=== PATIENT | female | born 1955 | race Caucasian/White ===

== ENCOUNTER 2024-11-24 17:14 | Inpatient (IN) | payer MEDICARE, OTHER ==
[~2024-11-24] VITALS: Ht 160 cm; Wt 75.8 kg
[2024-11-24] MEDS ORDERED: ASPIRIN EC 325 MG TABLET.DR PO ONE (17:46)
[2024-11-24] MEDS: ASPIRIN EC 325 MG TABLET.DR PO ONE (17:49)
[2024-11-24 17:59] LABS: CALCIUM, SERUM 9.8 mg/dL (8.5-10.1); CARBON DIOXIDE 27 mmol/L (21-32); CHLORIDE 103 mmol/L (98-107); CREATININE 1.1 mg/dL (0.6-1.3); GLUCOSE 114 mg/dL (74-106); SODIUM SERUM 139 mmol/L (136-145); UREA NITROGEN, BLOOD 43 mg/dL (7-18)
[2024-11-24 18:01] LABS: POTASSIUM 6.5 mmol/L (3.5-5.1)
[2024-11-24 18:14] LABS: BASOPHILS % (AUTO) 0.4 % (0.0-2.0); EOSINOPHILS # (AUTO) 0.1 K/uL (0.0-0.7); HEMATOCRIT 40 % (33-45); HEMOGLOBIN 13.6 g/dL (11.5-14.8); LYMPHOCYTES # (AUTO) 2.6 K/uL (0.8-4.8); LYMPHOCYTES % (AUTO) 40.4 % (20.0-44.0); MEAN CORPUSCULAR HEMOGLOBIN 31 PG (26.0-33.0); MEAN CORPUSCULAR HGB CONC 34 g/dl (31.0-36.0); MEAN CORPUSCULAR VOLUME 91 fL (82-100); MONOCYTES # (AUTO) 0.4 K/uL (0.1-1.30); MONOCYTES % (AUTO) 6.5 % (2.0-12.0); NEUTROPHILS # (AUTO) 3.3 K/uL (1.8-8.9); NEUTROPHILS % (AUTO) 50.7 % (43.0-81.0); PLATELET COUNT (AUTO) 206 K/uL (150-450); RED BLOOD CELL COUNT(AUTO) 4.42 MIL/uL (4.0-5.2); RED CELL DISTRIBUTION WIDTH 14.5 % (11.5-15.0); WHITE BLOOD COUNT (AUTO) 6.5 K/uL (4.3-11.0)
[2024-11-24] MEDS: Calcium Gluconate 1GM/10ML 4.65 MEQ in IV NS 0.9% 100 ML IV ONE (19:30)
[2024-11-24] MEDS: SODIUM BICARBONATE SYR 50 MEQ/50 ML DISP.SYRIN IV ONE (19:30)
[2024-11-24] MEDS: SODIUM ZIRCONIUM CYCLOSILICATE 10 GM POWD.PACK PO ONE (19:30)
[2024-11-24] MEDS ORDERED: Calcium Gluconate 0.465 MEQ/ML VIAL IV ONE (19:33)
[2024-11-24] MEDS ORDERED: SODIUM BICARBONATE SYR 50 MEQ/50 ML DISP.SYRIN ONE (19:34)
[2024-11-24] MEDS ORDERED: SODIUM ZIRCONIUM CYCLOSILICATE 10 GM POWD.PACK ONE (19:34)
[2024-11-24] MEDS ORDERED: APIX5TAB PO (20:37)
[2024-11-24] MEDS ORDERED: POLY15DR31 EACHEYE (20:37)
[2024-11-24] MEDS ORDERED: MULT-213 PO (20:37)
[2024-11-24] MEDS ORDERED: SERT50TA12 PO (20:37)
[2024-11-24] MEDS ORDERED: MAGN400O6 PO (20:37)
[2024-11-24] MEDS ORDERED: INSU100V11 SQ (20:37)
[2024-11-24] MEDS ORDERED: TRAM50TA2 PO (20:37)
[2024-11-24] MEDS ORDERED: DOCU100C36 PO (20:37)
[2024-11-24] MEDS ORDERED: DICL100G34 TP (20:37)
[2024-11-24] MEDS ORDERED: GLUC1KIT IM (20:37)
[2024-11-24] MEDS ORDERED: ATOR40TA PO (20:37)
[2024-11-24] MEDS ORDERED: AMIL5TAB9 PO (20:37)
[2024-11-24] MEDS ORDERED: ACET-73 PO (20:37)
[2024-11-24] MEDS ORDERED: SENN8.6T19 PO (20:37)
[2024-11-24] MEDS ORDERED: CRAN300T PO (20:37)
[2024-11-24] MEDS ORDERED: PANT40TA49 PO (20:37)
[2024-11-24] MEDS ORDERED: SACU1TAB PO (20:37)
[2024-11-24] MEDS ORDERED: CYCL30DR EACHEYE (20:37)
[2024-11-24] MEDS ORDERED: AMLO-213 PO (20:37)
[2024-11-24] MEDS ORDERED: LIDO30AD10 TP (20:37)
[2024-11-24] MEDS ORDERED: MAGN400T8 PO (20:37)
[2024-11-24] MEDS ORDERED: BETH50TA2 PO (20:37)
[2024-11-24] MEDS ORDERED: ASPI-869 PO (20:37)
[2024-11-24] MEDS ORDERED: ONDA-97 PO (20:37)
[2024-11-24] MEDS ORDERED: METO25TA20 PO (20:37)
[2024-11-24] MEDS ORDERED: ACET325T53 PO (20:37)
[2024-11-24] MEDS ORDERED: SUCR1ORA15 PO (20:37)
[2024-11-24] MEDS ORDERED: NITR0.4T48 SL (20:37)
[2024-11-24] MEDS ORDERED: ASCO500T10 PO (20:37)
[2024-11-24] MEDS ORDERED: BUSP10TA3 PO (20:37)
[2024-11-24] MEDS ORDERED: METF-440 PO (20:37)
[2024-11-24] MEDS ORDERED: BISA10SU11 RC (20:37)
[2024-11-24] MEDS ORDERED: Z GUARD REMEDY 4 OZ OINT TP PRN (21:00)
[2024-11-24] MEDS ORDERED: ONDANSETRON HCL/PF 4 MG/2 ML VIAL IVP PRN (21:00)
[2024-11-24] MEDS ORDERED: MAGNESIUM HYDROXIDE 30 ML UDC PO PRN ×2 (21:00→23:30)
[2024-11-24] MEDS ORDERED: ZOLPIDEM TARTRATE 5 MG TABLET PO PRN (21:00)
[2024-11-24] MEDS ORDERED: MAG HYDROX/AL HYDROX/SIMETH 30 ML UDC PO PRN (21:00)
[2024-11-24 22:00] VITALS: BP 138/58; TEMP 97.7; O2SAT 98
[2024-11-24] MEDS: ENOXAPARIN SODIUM 40 MG/0.4 ML DISP.SYRIN SQ SCH (23:05)
[2024-11-24] MEDS: IV 1/2NS 1000 ML 1,000 ML IV PRN (23:20)
[2024-11-24] MEDS ORDERED: DOCUSATE SODIUM 100 MG CAPSULE PO PRN (23:30)
[2024-11-24] MEDS ORDERED: NITROGLYCERIN 0.4 MG/TAB BOTTLE SL PRN (23:30)
[2024-11-24] MEDS ORDERED: DEXTROSE 50%-WATER 50 ML DISP.SYRIN IV PRN (23:30)
[2024-11-24] MEDS ORDERED: ACETAMINOPHEN ES 500 MG TABLET PO PRN (23:30)
[2024-11-24] MEDS ORDERED: ACETAMINOPHEN 325 MG TABLET PO PRN (23:30)
[2024-11-24] MEDS ORDERED: BISACODYL SUPP (10 MG) 10 MG/SUPP.RECT SUPP.RECT RC PRN (23:30)
[2024-11-24] MEDS ORDERED: ONDANSETRON 4 MG TAB.RAPDIS PO PRN (23:45)
[2024-11-24] MEDS ORDERED: GLUCAGON,HUMAN RECOMBINANT 1 MG/VIAL VIAL IM PRN (23:45)
[2024-11-24] MEDS: ACETAMINOPHEN 325 MG TABLET PO PRN (23:50)
[2024-11-25] VITALS: BP 126/62; TEMP 97.5; O2SAT 95
[2024-11-25 04:00] VITALS: BP 130/52; TEMP 97.9; O2SAT 96
[2024-11-25] MEDS: SUCRALFATE 1 G/10 ML UDC PO SCH (07:01)
[2024-11-25] MEDS: PANTOPRAZOLE 40 MG TABLET.DR PO SCH (07:01)
[2024-11-25] MEDS: INSULIN REGULAR, HUMAN 100 UNIT/ML 3 ML VIAL SQ PRN (07:09)
[2024-11-25] MEDS: BLOOD SUGAR DIAGNOSTIC 1 EACH STRIP VI SCH (07:09)
[2024-11-25 08:00] VITALS: BP 148/53; TEMP 97.8; O2SAT 95
[2024-11-25 08:14] LABS: BASOPHILS % (AUTO) 0.3 % (0.0-2.0); EOSINOPHILS # (AUTO) 0.1 K/uL (0.0-0.7); HEMATOCRIT 37 % (33-45); HEMOGLOBIN 12.2 g/dL (11.5-14.8); LYMPHOCYTES # (AUTO) 2.6 K/uL (0.8-4.8); LYMPHOCYTES % (AUTO) 56.8 % (20.0-44.0); MEAN CORPUSCULAR HEMOGLOBIN 30 PG (26.0-33.0); MEAN CORPUSCULAR HGB CONC 33 g/dl (31.0-36.0); MEAN CORPUSCULAR VOLUME 91 fL (82-100); MONOCYTES # (AUTO) 0.3 K/uL (0.1-1.30); MONOCYTES % (AUTO) 7.1 % (2.0-12.0); NEUTROPHILS # (AUTO) 1.5 K/uL (1.8-8.9); NEUTROPHILS % (AUTO) 33.8 % (43.0-81.0); PLATELET COUNT (AUTO) 188 K/uL (150-450); RED BLOOD CELL COUNT(AUTO) 4.03 MIL/uL (4.0-5.2); RED CELL DISTRIBUTION WIDTH 14.4 % (11.5-15.0); WHITE BLOOD COUNT (AUTO) 4.6 K/uL (4.3-11.0)
[2024-11-25 08:39] LABS: CALCIUM, SERUM 9.7 mg/dL (8.5-10.1); CREATININE 0.9 mg/dL (0.6-1.3); MAGNESIUM 1.9 mg/dL (1.8-2.4); PHOSPHORUS 3.2 mg/dL (2.5-4.9)
[2024-11-25 08:41] LABS: THYROID STIMULATING HORMONE 3.68 uIU/mL (0.358-3.74)
[2024-11-25] MEDS: busPIRone 5 MG TABLET PO SCH (08:50)
[2024-11-25] MEDS: MULTIVIT W/MINERALS 1 TAB TABLET PO SCH (08:50)
[2024-11-25] MEDS: SERTRALINE HCL 50 MG TABLET PO SCH (08:50)
[2024-11-25] MEDS: AMLODIPINE BESYLATE 10 MG TABLET PO SCH (08:50)
[2024-11-25] MEDS: LIDOCAINE 5% (PATCH) 1 EA PATCH TP SCH (08:50)
[2024-11-25] MEDS: METOPROLOL TARTRATE 25 MG TABLET PO SCH (08:50)
[2024-11-25] MEDS: BETHANECHOL CHLORIDE (25 MG) 25 MG TABLET PO SCH (08:50)
[2024-11-25] MEDS: ASCORBIC ACID 500 MG TABLET PO SCH (08:50)
[2024-11-25] MEDS: APIXABAN 5 MG TABLET PO SCH (08:52)
[2024-11-25] MEDS: DICLOFENAC TOPICAL 100 GM TUBE TP SCH (08:59)
[2024-11-25] MEDS: AMILORIDE HCL 5 MG TABLET PO SCH (08:59)
[2024-11-25] MEDS ORDERED: Medication Not On Formulary EA (Cranberry Extract (Cranberry) 450 MG) PO SCH (09:00)
[2024-11-25] MEDS ORDERED: Medication Not On Formulary EA (Cyclosporine (Restasis) 1 DROP) EACHEYE SCH (09:00)
[2024-11-25] MEDS: TRAMADOL HCL 50 MG TABLET PO PRN (09:46)
[2024-11-25] MEDS: ASPIRIN EC 325 MG TABLET.DR PO SCH (10:26)
[2024-11-25 12:00] VITALS: BP 141/60; TEMP 97.9; O2SAT 96
[2024-11-25] MEDS: POLYVINYL ALCOHOL 15 ML BOTTLE EACHEYE SCH (12:16)
[2024-11-25] MEDS ORDERED: IOHEXOL-350 100 ML VIAL IV ONE (14:04)
[2024-11-25] MEDS ORDERED: NITROGLYCERIN 0.4 MG/TAB BOTTLE ONE (14:04)
[2024-11-25] MEDS ORDERED: IV NS 0.9% 250 ML IV ONE (14:05)
[2024-11-25] MEDS ORDERED: CT SWABBABLE VALVE TRANS SET 1 EA INFUS.SET MC ONE (14:05)
[2024-11-25] MEDS ORDERED: NITROGLYCERIN 0.4 MG/TAB BOTTLE SL ONE (14:10)
[2024-11-25] MEDS ORDERED: METOPROLOL TARTRATE INJ 5 MG/5 ML AMPUL IVP PRN (14:10)
[2024-11-25 16:00] VITALS: BP 128/57; TEMP 97.7; O2SAT 94
[2024-11-25 18:35] LABS: APPEARANCE,URINE CLOUDY (CLEAR); BILIRUBIN,URINE NEGATIVE (NEGATIVE); BLOOD, URINE 3+ Ery/uL (NEGATIVE); KETONES,URINE NEGATIVE (NEGATIVE); LEUKOCYTE ESTERASE ,URINE TRACE (NEGATIVE); NITRITE, URINE POSITIVE (NEGATIVE); PROTEIN,URINE 1+ mg/dl (NEGATIVE); UGLUCOSE TRACE mg/dL (NEGATIVE); UROBILINOGEN,URINE 0.2 EU/dL (0.2)
[2024-11-25 19:16] LABS: COLOR,URINE RED (YELLOW)
[2024-11-25 19:17] LABS: ADD URINE CULTURE YES; BACTERIA,URINE Rare /HPF (None Seen); RBC,URINE TOO NUMEROUS TO COUN /HPF (0-2); SQUAMOUS EPITHELIAL CELL,UR 0-2 /HPF (None Seen)
[2024-11-25 20:00] VITALS: BP 110/54; TEMP 97.3; O2SAT 97
[2024-11-25] MEDS: SENNOSIDES 8.6 MG TABLET PO SCH (21:52)
[2024-11-25] MEDS: ATORVASTATIN 40 MG TABLET PO SCH (21:52)
[2024-11-25] MEDS: *INSULIN REGULAR(HUMULIN R)HUM 100 UNIT/ML VIAL SQ PRN (22:12)
[2024-11-26] VITALS: BP 106/50; TEMP 97.6; O2SAT 96
[2024-11-26 04:00] VITALS: BP_SYST 104; BP_DIAS 57; BP_DIAS 87; TEMP 97.8; O2SAT 99
[2024-11-26 08:00] VITALS: BP 127/59; TEMP 97.7; O2SAT 99
[2024-11-26] MEDS: CEFTRIAXONE 1 G in IV D5W 50 ML IV SCH (11:12)
[2024-11-26 11:24] LABS: BASOPHILS % (AUTO) 0.5 % (0.0-2.0); EOSINOPHILS # (AUTO) 0.1 K/uL (0.0-0.7); EOSINOPHILS % (AUTO) 2.1 % (0.0-6.0); HEMATOCRIT 40 % (33-45); HEMOGLOBIN 13.2 g/dL (11.5-14.8); LYMPHOCYTES % (AUTO) 33.8 % (20.0-44.0); MEAN CORPUSCULAR HEMOGLOBIN 31 PG (26.0-33.0); MEAN CORPUSCULAR HGB CONC 33 g/dl (31.0-36.0); MEAN CORPUSCULAR VOLUME 92 fL (82-100); MONOCYTES # (AUTO) 0.4 K/uL (0.1-1.30); MONOCYTES % (AUTO) 6.5 % (2.0-12.0); NEUTROPHILS # (AUTO) 3.4 K/uL (1.8-8.9); NEUTROPHILS % (AUTO) 57.1 % (43.0-81.0); PLATELET COUNT (AUTO) 193 K/uL (150-450); RED CELL DISTRIBUTION WIDTH 14.6 % (11.5-15.0)
[2024-11-26] MEDS: ISOSORBIDE MONONITRATE (30MG) 30 MG TAB.SR.24H PO SCH (11:38)
[2024-11-26 11:41] LABS: CALCIUM, SERUM 9.9 mg/dL (8.5-10.1); CREATININE 0.8 mg/dL (0.6-1.3); POTASSIUM 4.2 mmol/L (3.5-5.1)
[2024-11-26 12:00] VITALS: BP 117/48; TEMP 98.1; O2SAT 97
[2024-11-26 16:55] VITALS: BP 110/55; TEMP 98.1; O2SAT 98
[2024-11-26 20:00] VITALS: BP 139/58; TEMP 97.5; O2SAT 100
[2024-11-27] VITALS: BP 118/56; TEMP 97.6; O2SAT 100
[2024-11-27 05:00] VITALS: BP 132/59; TEMP 97.5; O2SAT 97
[2024-11-27 07:28] LABS: CALCIUM, SERUM 9.9 mg/dL (8.5-10.1); CREATININE 0.7 mg/dL (0.6-1.3); POTASSIUM 4.4 mmol/L (3.5-5.1)
[2024-11-27 07:29] LABS: BASOPHILS % (AUTO) 0.4 % (0.0-2.0); EOSINOPHILS # (AUTO) 0.2 K/uL (0.0-0.7); EOSINOPHILS % (AUTO) 2.6 % (0.0-6.0); HEMATOCRIT 39 % (33-45); HEMOGLOBIN 13.2 g/dL (11.5-14.8); LYMPHOCYTES # (AUTO) 2.1 K/uL (0.8-4.8); LYMPHOCYTES % (AUTO) 34.5 % (20.0-44.0); MEAN CORPUSCULAR HEMOGLOBIN 31 PG (26.0-33.0); MEAN CORPUSCULAR HGB CONC 34 g/dl (31.0-36.0); MEAN CORPUSCULAR VOLUME 91 fL (82-100); MONOCYTES # (AUTO) 0.5 K/uL (0.1-1.30); MONOCYTES % (AUTO) 8.2 % (2.0-12.0); NEUTROPHILS # (AUTO) 3.3 K/uL (1.8-8.9); NEUTROPHILS % (AUTO) 54.3 % (43.0-81.0); PLATELET COUNT (AUTO) 201 K/uL (150-450); RED BLOOD CELL COUNT(AUTO) 4.31 MIL/uL (4.0-5.2); RED CELL DISTRIBUTION WIDTH 14.4 % (11.5-15.0); WHITE BLOOD COUNT (AUTO) 6.1 K/uL (4.3-11.0)
[2024-11-27 08:00] VITALS: BP 115/61; TEMP 97.9; O2SAT 96
[2024-11-27] MEDS ORDERED: CEFT1VIA15 IV (11:15)
[2024-11-27] MEDS ORDERED: ISOS30TA86 PO (11:15)
[2024-11-27 12:00] VITALS: BP 118/63; TEMP 97.2; O2SAT 98
[2024-11-27] MEDS: SUCRALFATE 1 G TABLET PO SCH (12:53)
[2024-11-27 16:00] VITALS: BP 104/50; TEMP 98.2; O2SAT 99
== END 2024-11-27 17:32 | DRG 303 ==
LOC: ER 17:22 → TELE 21:22
PROVIDERS: ADMIT Student in an Organized Health Care Education/Training Program; ATTEND Nurse Practitioner Family
DX: I25.10 Atherosclerotic heart disease of native coronary artery without angina pectoris (principal); N39.0 Urinary tract infection, site not specified; R07.9 Chest pain, unspecified; E11.22 Type 2 diabetes mellitus with diabetic chronic kidney disease; E87.5 Hyperkalemia; E86.0 Dehydration; E66.9 Obesity, unspecified; Z86.73 Personal history of transient ischemic attack (TIA), and cerebral infarction without residual deficits; F03.90 Unspecified dementia, unspecified severity, without behavioral disturbance, psychotic disturbance, mood disturbance, and anxiety; I12.9 Hypertensive chronic kidney disease with stage 1 through stage 4 chronic kidney disease, or unspecified chronic kidney disease; I48.0 Paroxysmal atrial fibrillation; N18.9 Chronic kidney disease, unspecified; Z79.82 Long term (current) use of aspirin; R60.9 Edema, unspecified; Z71.3 Dietary counseling and surveillance; Z68.29 Body mass index [BMI] 29.0-29.9, adult; B96.89 Other specified bacterial agents as the cause of diseases classified elsewhere
CPT/HCPCS: 36415; 71045-TC; 75574; 80048-TC; 81001; 82962-TC; 83735-TC; 84100-TC; 84443-TC; 84484-TC; 85025-TC; 85378-TC; 87081-TC; 87086-TC; 93307-TC; 93971-TC; A4223; G0378; J0612; J0696; J1650; J1815; J3490; J7030; J7050; J7060; Q9967